=== PATIENT | male | born 1990 | race African-American/Black ===

== ENCOUNTER 2016-11-11 18:25 | Emergency (ER) | payer SELFPAY ==
[~2016-11-11] VITALS: Ht 175.3 cm; Wt 101.5 kg
[~2016-11-11 18:25] MED LIST: LIDOCAINE20 MG/1 M5 PO
[2016-11-11] MEDS ORDERED: KEFLEX500 MG PO (20:42)
[2016-11-11 21:06] VITALS: BP 154/87
== END 2016-11-11 21:08 | disposition home or self-care (01) ==
LOC: EME 18:25
PROC: 0HQFXZZ Repair Right Hand Skin, External Approach (ICD-10-PCS; principal; 2016-11-11)
DX: S61.210A Laceration without foreign body of right index finger without damage to nail, initial encounter (principal); S64.490A Injury of digital nerve of right index finger, initial encounter; Y99.0 Civilian activity done for income or pay; W26.8XXA Contact with other sharp object(s), not elsewhere classified, initial encounter
CPT/HCPCS: 99281; 99284; S0020

== ENCOUNTER 2018-03-23 20:40 | Emergency (ER) | payer OTHER ==
[~2018-03-23] VITALS: Ht 170.2 cm; Wt 99.8 kg
[~2018-03-23 20:40] MED LIST changes: +KEFLEX500 MG PO
[2018-03-23 22:23] VITALS: BP 133/82
== END 2018-03-23 22:24 | disposition home or self-care (01) ==
LOC: EME 20:40
PROC: 0HQFXZZ Repair Right Hand Skin, External Approach (ICD-10-PCS; principal; 2018-03-23)
DX: S61.411A Laceration without foreign body of right hand, initial encounter (principal); W27.2XXA Contact with scissors, initial encounter; F17.200 Nicotine dependence, unspecified, uncomplicated
CPT/HCPCS: 99281; 99284

== ENCOUNTER 2018-04-01 23:13 | Emergency (ER) | payer OTHER ==
[~2018-04-01] VITALS: Ht 170.2 cm; Wt 97.3 kg
[2018-04-01 23:44] VITALS: BP 121/78
== END 2018-04-01 23:46 | disposition home or self-care (01) ==
LOC: RME 23:13 → EME 23:13 → RME 23:46
DX: S61.411D Laceration without foreign body of right hand, subsequent encounter (principal); W27.2XXD Contact with scissors, subsequent encounter; F17.200 Nicotine dependence, unspecified, uncomplicated
CPT/HCPCS: 99281; 99284